=== PATIENT | female | born 1970 | race African-American/Black ===

== ENCOUNTER 2016-09-28 13:16 | Outpatient (CLI) | payer BC ==
--- NOTE | 2016-09-28 14:51 | Ultrasound Report ---
Pelvic ultrasound: Pelvic pain. Premenopausal. Endovaginal and transabdominal imaging demonstrates a retroflexed uterus that measures approximately 5.6 x 6.3 x 7.5 cm. The myometrium is homogeneous. The endometrial thickness is 10 mm but homogeneous. 2 nabothian cysts present in the cervix measuring under a centimeter each. The left ovary measures 3.1 cm in maximum dimension and contains a 2.6 cm cyst. The right ovary measures 2.5 cm with a 12 mm cyst. There is minimal free fluid. Impressions: Bilateral ovarian cysts.
== END 2016-09-28 13:17 | disposition home or self-care (01) ==
LOC: SPVWC 13:16
PROVIDERS: ATTEND Obstetrics & Gynecology
DX: N83.201 Unspecified ovarian cyst, right side (principal); N83.202 Unspecified ovarian cyst, left side; N88.8 Other specified noninflammatory disorders of cervix uteri
CPT/HCPCS: 76830; 76856